=== PATIENT | female | born 1950 | race Caucasian/White ===

== ENCOUNTER → 2018-02-25 19:50 | Outpatient (CLI) | payer MEDICARE, OTHER | END | disposition home or self-care (01) | LOC: D.MAMMO 02-10 14:45 | DX: Z12.31 Encounter for screening mammogram for malignant neoplasm of breast (principal) ==

== ENCOUNTER 2019-04-19 11:30 | Outpatient (CLI) | payer MEDICARE | END 2019-04-19 12:00 | disposition home or self-care (01) | LOC: D.MAMMO 11:30 | PROVIDERS: ATTEND Family Medicine | DX: Z12.31 Encounter for screening mammogram for malignant neoplasm of breast (principal) ==

== ENCOUNTER → 2019-12-22 08:45 | Outpatient (CLI) | payer MEDICARE, BC ==
--- NOTE | 2019-12-23 08:18 | EC ---
PATIENT:OSMAR CHAN DATE OF SERVICE: 12/22/19 SEX: F MEDICAL RECORD: [id number] DATE OF : 50 LOCATION:D[facility] [place] AGE OF PATIENT: 68 ADMISSION DATE: 12/22/19 REFERRING PHYSICIAN: INTERPRETING PHYSICIAN: SHANE PURCELL MD ECHOCARDIOGRAM REPORT ECHO CHARGES 4 ECHO COMPLETE Date: 12/22/19 CLINICAL DIAGNOSIS: PERICARDIAL EFFUSION ECHOCARDIOGRAPHIC MEASUREMENTS (adult normal given) AC root (d.<3.7cm) 2.8 cm LV Septum d (<1.2 cm> 1.0 cm Valve Excursion 2.0 cm LV Septum (systole) 1.1 cm Left Atria (s.<4.0cm> 3.0 cm LVPW d(<1.2cm) 0.9 cm RV (d.<2.3cm) 2.3 cm LVPW (sytole) 1.2 cm LV diastole(<5.6CM) 4.9 cm MV E-F(>70mm/sec) cm LV systole 3.9 cm LVOT Diameter 1.7 cm MV exc.(>10mm) cm Est.ejection fraction (50-75%) % DOPPLER: LVIT cm/sec A 69 cm/sec E 55 cm/sec LA cm/sec RVSP 28.7 mmHg LVOT 102 cm/sec AOP1/2T m/s Asc. Ao 127 cm/sec RVOT 58 cm/sec RA cm/sec PA 59 cm/sec AV Gradient Peak 6.4 mmHg AV Mean 3.8 mmHg AV Area 1.9 cm MV Gradient Peak 2.7 mmHg MV Mean 1.2 mmHg MV Area cm COMMENTS: Clock Mechanic: [facility] Ceramic Tile Mechanic: 3 Dr. Jimenez TAPE# PACS Pericardial Effusion N DATE OF SERVICE: Adequate 2D, color flow imaging, spectral Doppler, and M-Mode. No LVH. LV internal dimension is normal. Wall motion is normal. EF is greater than or equal to 55%. Aortic valve is tricuspid. There is no evidence of stenosis by Doppler interrogation. Left atrium is normal. Mitral valve shows no prolapse. Trace MR. Right-sided chambers are grossly normal. Trace TR. No significant pericardial effusion is noted in this study. ECHOCARDIOGRAM REPORT [id number] OSMAR CHAN TRANSINT:[id number] Voice Confirmation ID: [id number] DOCUMENT ID: [id number] SHANE PURCELL MD at 0818 CC: [id number] DICTATION DATE: 12/22/19 1226 FUR CUTTING MACHINE OPERATOR: 12/22/198 DEP CLI 12/22/19 [id number] [place] [address]
== END | disposition home or self-care (01) ==
LOC: D.ECHO 08:45
PROVIDERS: ATTEND Internal Medicine Cardiovascular Disease
DX: I31.3 Pericardial effusion (noninflammatory) (principal)

== ENCOUNTER 2020-11-29 15:00 | Outpatient (CLI) | payer MEDICARE, BC | END 2020-11-29 23:59 | disposition home or self-care (01) | LOC: D.MAMMO 15:00 | PROVIDERS: ATTEND Internal Medicine Cardiovascular Disease | DX: Z12.31 Encounter for screening mammogram for malignant neoplasm of breast (principal) ==